=== PATIENT | female | born 1965 | race Caucasian/White ===

== ENCOUNTER 2018-09-19 12:04 | Emergency (ER) | payer OTHER ==
[2018-09-19] MEDS: DIAZEPAM 5 MG TAB PO (13:52)
[2018-09-19] MEDS: KETOROLAC 30 MG INJ IM (13:53)
== END 2018-09-19 15:18 | disposition home or self-care (01) ==
LOC: FTE 12:04
DX: S16.1XXA Strain of muscle, fascia and tendon at neck level, initial encounter (principal); R51 Headache; X58.XXXA Exposure to other specified factors, initial encounter; Y92.9 Unspecified place or not applicable
CPT/HCPCS: 70450; 81025; 96372; 99285-25